=== PATIENT | female | born 1940 | race Caucasian/White ===

== ENCOUNTER 2018-11-19 18:32 | Inpatient (IN) | payer OTHER ==
[~2018-11-19] VITALS: Ht 160 cm; Wt 39.7 kg
[~2018-11-19 18:32] MED LIST: ALBU90OI6 INH; ALLO100; AMLO10 PO; ASPI81EC; ASPI81EC PO; ATEN50 PO; ATOR10; AZIT500 PO; Aspirin EC81 MG PO; BUPR150T2; CELE200; CLOP75; FURO80; GLIM2; Geritol Comple1 EACH PO; HYDGUAL120 PO; LEVFLO500; LEVFLO500 PO; LEVSOD200; LISI10; LISI20 PO; LOVA20 PO; Lovastatin20 MG PO; Metformin HCl500 MG PO; NAPR550 PO; OLME20; OMEP20ER; POTCHL20ER; PRED20 PO; RXHYDACE; SUCR1; TAMO10 PO; WARF2 PO; WARF2.5 PO
[2018-11-19 19:07] LABS: BASOPHILS ABSOLUTE AUTO 0.04 K/mm3 (0.00-0.23); BASOPHILS PERCENT AUTO 0 % (0-2); EOSINOPHILS ABSOLUTE AUTO 0.03 K/mm3 (0.00-0.68); EOSINOPHILS PERCENT AUTO 0 % (0-6); Hematocrit 33.8 % (33.0-51.0); Hemoglobin 10.5 g/dL (11.5-16.0); IMMATURE GRAN ABSOLUTE AUTO 0.01 K/mm3 (0.00-0.10); IMMATURE GRAN PERCENT AUTO 0 % (0-1); LYMPHOCYTES ABSOLUTE AUTO 0.61 K/mm3 (0.84-5.20); LYMPHOCYTES PERCENT AUTO 6 % (21-46); MONOCYTES ABSOLUTE AUTO 0.63 K/mm3 (0.16-1.47); MONOCYTES PERCENT AUTO 7 % (4-13); Mean Corpuscular HGB 28.9 pg (26.0-34.0); Mean Corpuscular HGB Conc 31.1 g/dL (31.5-36.5); Mean Corpuscular Volume 93 fL (80-100); Mean Platelet Volume 9.2 fL (9.1-12.4); NEUTROPHILS ABSOLUTE AUTO 8.39 K/mm3 (1.96-9.15); NEUTROPHILS PERCENT AUTO 86 % (41-73); Platelet Count 289 K/mm3 (150-400); RDW Coefficient Variation 14.8 % (11.7-14.2); RDW Standard Deviation 50.7 fL (35.1-46.3); Red Blood Cell Count 3.63 M/mm3 (3.80-5.20); White Blood Cell Count 9.71 K/mm3 (4.00-11.30)
[2018-11-19] MEDS ORDERED: METO50ER PO (19:16)
[2018-11-19 19:34] LABS: Alanine Aminotransfer (ALT/SGP 25 U/L (12-78); Albumin, Blood 2.9 g/dL (3.4-5.0); Albumin/Globulin Ratio 0.7 (0.8-1.8); Alk Phos 81 U/L (50-136); Anion Gap 6 mmol/L (6-16); Aspartate Aminotrans (AST/SGOT 38 U/L (12-37); Bilirubin, Total 0.3 mg/dL (0.1-1.0); Blood Urea Nitrogen 10 mg/dL (8-24); Bun/Creatinine Ratio 27.5 (12.0-20.0); CO2, Blood 28 mmol/L (21-32); Calcium, Blood 8.5 mg/dL (8.5-10.1); Chloride, Blood 102 mmol/L (98-108); Creatinine, Blood 0.36 mg/dL (0.40-1.00); Globulin, Blood 3.9 g/dL (2.2-4.0); Glomerular Filtration Rate >60 (60-); Glucose, Blood 104 mg/dL (70-99); Potassium, Blood 4.1 mmol/L (3.5-5.5); Sodium, Blood 136 mmol/L (136-145); Total Protein, Blood 6.8 g/dL (6.4-8.2)
[2018-11-19] MEDS ORDERED: ZESTRIL40 MG PO (21:38)
[2018-11-19] MEDS ORDERED: ALBU3IS INH (21:41)
[2018-11-19 21:47] LABS: International Normalized Ratio 1.11; Prothrombin Time Results 11.7 Sec (9.7-11.5)
--- NOTE | 2018-11-19 23:00 | NUR ---
ASSUMED CARE REPORT TAKEN FROM ED RN ZITA. PT ARRIVED TO UNIT AND WAS MOVED FROM STRETCHE TO BED D/T FOOT PAIN. BLE APPEAR PALE AND SUCKY IN COLOR WITH SOME DARKENING OF SKIN AROUND ANKELS AND SHINS. PT REPORTS N/T TO BLE AND PAIN TO TOUCH ON BILAT FEET. PULSES CAN BE FELT BUT ARE THREADY, AND L FOOT PULSE IS WEAKER. RESP EVEN UNLBAORED ON 4L NC, PT REPORTS THIS IS BASELINE. SATS >92%. PT REQUESTING TO SMOKE. EDUCATED THAT IT WOULD BE BEST TO WAIT UNTIL PT IS SEEN BY DR SHEA IN AM BEFORE GOING OUT TO SMOKE. PT IS INDEPENENT IN ROOM TO RR. CALL LIGHT IN REACH.
--- NOTE | 2018-11-20 05:46 | NUR ---
SHIFT SUMMARY PT SLEEPING IN ROOM COMFORTABLY. NO ACTUE CHANGES SINCE ARRIVAL. PT IS INDEPENDENT IN ROOM. CALLS APPROPRIATELY. RESP EVEN UNLABORED ON 4L O2 VIA NC. SATS >92%. CALL LIGHT IN REACH
--- NOTE | 2018-11-20 19:36 | NUR ---
SHIFT SUMMARY PT ALERT AND ORIENTED. VS STABLE. DR SHEA IN TO SEE PT THIS EVENING. PLANS TO TAKE PT TO CHEMICAL DETECTION EXPERT Friday. PT EDUCATED ABOUT SMOKING CESSATION. HEPARIN GTT INFUSING PER ORDERS. NO OTHER CHANGES SINCE INITIAL ASSESSMENT. WILL CONTINUE TO MONITOR. REPORT GIVEN TO MONICA RODRÍGUEZ RN.
--- NOTE | 2018-11-20 21:29 | NUR ---
PCU NIGHTSHIFT ASSUMED CARE OF PT APPROX. 1900. PT A&O X4 AT THIS TIME. ASSESMENT COMPLETED AND VITAL SIGNS STABLE. PT SKIN DRY, FRAGILE. EXTREMITIES COOL, PALE AND PURPLE COLORED. BLE POOR CIRCULATION, WITH FAINT PEDAL PULSE. HEPARIN DRIP CURRENLTY RUNNING AT THIS TIME. VARIFIED RATES AND CHANGES WITH SECOND RN. FAMILY AT BEDSIDE SHORTLY AFTER SHIFT CHANGE. RECIEVED REPORT AND BEGIN TO VISIT ALL PT'S. WHILE IN TO SEE OTHER PATIENTS FAMILY REQUESTED TO SEE PT'S RN. WENT TO ROOM SOON POSSIBLE TO SEE FAMILY. FAMILY NOTIFED ME THAT THEY HAD GIVEN PT HER EVENING MEDICATIONS FROM HER HOME MEDICATION CONTAINER. WHEN INQUIRING ABOUT WHAT MEDICAITONS WERE GIVEN THEY REPORTED THEY WERE UNCERTAIN OF NAMES. SPOKE WITH PT TO TRY AND GET NAME OF MEDICATIONS THAT SHE TAKES IN THE EVENING TO VARIFY THIS WITH SCHEDULED HOSPITAL MEDICATIONS. ALL SCHEDULED HOSPITAL MEDICAITONS WERE HELD. PT HOME MEDICAITONS WERE TAKEN AND SAFELY LOCKED UP. NOTIFIED FAMILY AND PATIENT NOT TO GIVE/TAKE ANY HOME MEDICATIONS. REASSURED THAT ALL NEEDED MEDICATIONS WOULD BE GIVEN BY HOSPITAL STAFF. BED IN LOW POSITION, BED ALARM ON, CALL LIGHT IN REACH AND PT DENIES ANY NEEDS AT THIS TIME. WILL CONTINUE TO MONITOR.
--- NOTE | 2018-11-21 05:43 | NUR ---
SHIFT SUMMARY PT PLEASANT, COOPERATIVE AND USES CALL LIGHT APPROPRIATELY. PT REMAINE IN BED FOR DURATION OF SHIFT. PT MOVED SELF AROUND IN BED AT NEEDED. ASSESSMENT FINDINGS REMAIN UNCHANGED. VITAL SIGNS REMAIN STABLE. HEPARIN DRIP CONTINUES TO RUN. BED IN LOW POSITION, BED ALARM ON, CALL LIGHT IN REACH AND PT DENIES ANY NEEDS AT THIS TIME. WILL CONTINUE TO MONITOR UNTIL HANDOFF TO DAYSHIFT RN.
--- NOTE | 2018-11-21 10:50 | NUR ---
AM NOTE. ASSUMED CARE OF PT APROX 0700, PT IS A&O WITH CONFUSION AT TIMES. PT IS A SBA TO THE BATHROOM/BSC. PT WAS ADMITTED DUE TO PAD W/POSSIBLE OCCLUSION OF PREVIOUSLY PLACED STENT. PT IS SCHEDULED FOR PROCEDURE ON THURSDAY 11/23. TELE INTACT, NSR IN THE 90'S PER CTRS. PT'S BP 108/64. NO EDEMA NOTED ON ASSESSMENT. PT L/S ARE COARSE T/O AND DIM IN THE BASES, PT IS 1PPD SMOKER. BT PRESENT AND HYPERACTIVE, ABD IS SOFT AND NONTENDER TO PALP. PT'S SKIN IS VERY DRY, FLAKEY AND FRAGILE. PT'S BLLE ARE DUSKY/PURPLE AND COOL WITH VERY FAINT PEDAL PULSES. PT'S BLUE ARE DUSKY AND COOL WELL. CALL LIGHT IN REACH, BED IS LOCKED AND LOW WILL CONTINUE TO MONITOR.
--- NOTE | 2018-11-21 18:00 | NUR ---
SHIFT SUMMARY. NO ACUTE CHANGES NOTED THIS SHIFT. PT HAS BEEN SBA TO THE BATHROOM. PT'S VS HAVE BEEN STABLE. PT DENIES ANY CHEST PAIN/PRESSURE, N/V OR SOB. BEDALARM IS ON DUE TO PT'S OCC CONFUSION. HEPARIN GTT INFUSING AT 19U/KG/HR AND 12.9MLS/HR. CALL LIGHT IN REACH, BED IS LOCKED AND LOW. WILL CONTINUE TO MONITOR UNTIL REPORT IS GIVEN TO ONCOMING RN.
[2018-11-21 20:19] LABS: Platelet Count 266 K/mm3 (150-400)
--- NOTE | 2018-11-22 00:19 | NUR ---
PCU NIGHTSHIFT ASSUMED CARE OF PT APPROX. 1900. PT A&OX4. ASSESSMENT COMPLETED. VITAL SIGNS STABLE. PT REPORTS LEFT LEG PAIN. BLE COOL, DUSKY/PURPLE COLOR. LEFT LEG IS SLIGHTLY COOLER AND MORE PURPLE THAN RIGHT. PULSE FAINT BILATERALLY. BUE COOL WELL. HEPARIN DRIP RUNNING AT THIS TIME. VARIFED WITH SECOND RN ALONG WITH ANY CHANGES MADE. BED IN LOW POSITION, BED ALARM ON, CALL LIGHT IN REACH AND PT DENIES ANY NEEDS AT THIS TIME. WILL CONTINUE TO MONITOR.
--- NOTE | 2018-11-22 05:12 | NUR ---
SHIFT SUMMARY PT PLEASANT, COOEPRATIVE AND USES CALL LIGHT APPROPRIATELY. PT WAS ABLE TO REST FOR MOST OF SHIFT.VITAL SIGNS REMAIN STABLE. PT REMAINS A&O X4 AND ASSESSMENT FINDINGS REMAIN UNCHANGED FROM AM. AFTER PRN PAIN MEDICAITONS GIVEN THIS MRRUY PT REPORTS LEFT LEG PAIN IMPROVED AND DID NOT INCREASE AFTER THIS. PT ABLE TO AMUBLATE TO BEDSIDE COMMODE NEEDED. HEPARIN DRIP STILL RUNNING. CHANGES VARIFIED WITH SECOND RN THROUGHOUT SHIFT. BED IN LOW POSITION, BED ALARM ON, CALL LIGHT IN REACH AND PT DENIES ANY NEEDS AT THIS TIME. WILL CONTINUE TO MONITOR UNTIL HANDOFF TO DAYSHIFT RN.
[2018-11-22 15:24] LABS: Anion Gap 6 mmol/L (6-16); Blood Urea Nitrogen 12 mg/dL (8-24); Bun/Creatinine Ratio 39.9 (12.0-20.0); CO2, Blood 30 mmol/L (21-32); Calcium, Blood 8.1 mg/dL (8.5-10.1); Chloride, Blood 98 mmol/L (98-108); Glomerular Filtration Rate >60 (60-); Glucose, Blood 185 mg/dL (70-99); Sodium, Blood 134 mmol/L (136-145)
[2018-11-22 15:25] LABS: BASOPHILS ABSOLUTE AUTO 0.03 K/mm3 (0.00-0.23); BASOPHILS PERCENT AUTO 0 % (0-2); EOSINOPHILS ABSOLUTE AUTO 0.04 K/mm3 (0.00-0.68); EOSINOPHILS PERCENT AUTO 1 % (0-6); Hematocrit 30.4 % (33.0-51.0); Hemoglobin 9.4 g/dL (11.5-16.0); IMMATURE GRAN ABSOLUTE AUTO 0.02 K/mm3 (0.00-0.10); IMMATURE GRAN PERCENT AUTO 0 % (0-1); LYMPHOCYTES ABSOLUTE AUTO 0.73 K/mm3 (0.84-5.20); LYMPHOCYTES PERCENT AUTO 9 % (21-46); MONOCYTES ABSOLUTE AUTO 0.54 K/mm3 (0.16-1.47); MONOCYTES PERCENT AUTO 7 % (4-13); Mean Corpuscular HGB 28.6 pg (26.0-34.0); Mean Corpuscular HGB Conc 30.9 g/dL (31.5-36.5); Mean Corpuscular Volume 92 fL (80-100); Mean Platelet Volume 9.5 fL (9.1-12.4); NEUTROPHILS ABSOLUTE AUTO 6.46 K/mm3 (1.96-9.15); NEUTROPHILS PERCENT AUTO 83 % (41-73); Platelet Count 274 K/mm3 (150-400); RDW Coefficient Variation 14.6 % (11.7-14.2); RDW Standard Deviation 49.7 fL (35.1-46.3); Red Blood Cell Count 3.29 M/mm3 (3.80-5.20); White Blood Cell Count 7.82 K/mm3 (4.00-11.30)
--- NOTE | 2018-11-22 17:51 | NUR ---
SHIFT SUMMARY Assumed care of pt at 0700. Report received from Loreto ASHER. Pt on 2 LPM NC. States her home use of O2 is 2.5-3 LPM. Pt OOB several times this shift with standby assist. Pt had family visit for about one hour today. Update provided to family with verbal consent from patient. Bed maintained in lowest position. Call light in reach. Pt denies need at this time.
--- NOTE | 2018-11-22 23:48 | NUR ---
PCU NIGHTSHIFT ASSUMED CARE OF PT APPROX. 1900. PT A&o X4, ASSESSMENT COMPLETED. VITAL SIGNS STABLE. PT HAS OXYGEN VIA NASAL CANULA AT 3L/MIN. BLE PULSES FAINT, COOL, PAINFUL AND PURPLE. LEFT LEG SLIGHTLY WORSE THAN RIGHT. HEPARIN DRIP RUNNING. VARIFIED WITH SECOND RN. BED IN LOW POSTION, BED ALARM ON, CALL LIGHT IN REACH AND PT DENIES ANY NEEDS AT THIS TIME. WILL CONTINUE TO MONITOR.
[2018-11-23 04:10] LABS: Mean Platelet Volume 9.3 fL (9.1-12.4); Platelet Count 265 K/mm3 (150-400)
--- NOTE | 2018-11-23 05:01 | NUR ---
SHIFT SUMMARY PT PLEASANT, COOPERATIVE AND USES CALL LIGHT APPROPRATELY. PT REMAINS A&O X4. VITAL SIGNS STABLE. PT WAS ABLE TO REST FOR MOST OF SHIFT. HEPARIN DRIP CONTINUES TO RUN.ALL CHANGES VARIFIED WITH SECOND RN. PT ABLE TO AMBULATE TO BEDSIDE COMMODE NEEDED T/O SHIFT. PT HAVE BEEN NPO SINCE MIDNIGHT FOR PROCEDURE ON 11/23/18. BED IN LOW POSITION, CALL LIGHT IN REACH AND PT DENIES ANY NEEDS AT THIS TIME. WILL CONTINUE TO MONITOR UNTIL HANDOFF TO DAYSHIFT RN.
--- NOTE | 2018-11-23 18:26 | NUR ---
ARRIVED TO ICU 14 VIA BED FROM HEART CENTER. PT. LETHARGIC PAST VERSED AND FENTANYL. VSS. MONITOR SHOWS SINUS RHYTHM. LUNGS CLEAR, SA02 100% ON 2L/NC. PT. HAS SHEATH X3- RT. GROIN SHEATH INFUSING HEPARIN AT 300 UNITS/HR= 6ML/HR (8 U /KG/HR). NS AT 25 ML/HR WITH TPA AT 0.5 MG/HR = 50 ML/HR X2 INFUSING IN EACH OF THE LT. BRACHIAL ARTERY AND RT. POST TIB ARTERY. INSERTIONS SITES WITHOUT BLEEDING OR HEMATOMAS.
[2018-11-23 18:45] LABS: Hematocrit 32.3 % (33.0-51.0); Hemoglobin 10.3 g/dL (11.5-16.0)
--- NOTE | 2018-11-23 19:30 | NUR ---
ASSUSMED CARE ASSUMED CARE OF PT. PT SLEEPING, AWAKESN BRIEFLY TO VERBAL STIMULI. C/O PAIN TO FEET WHEN TOUCHED. BILAT FEET COOL TO TOUCH. LEFT FOOT WITH CATH TO POSTERIOR. TPA AT 25 ML/HR, 0.5 MG/HR WITH NS AT 25 ML/HR. SITE CLEAR. RIGHT GROIN WITH HEPARING AT 6 ML/HR, SITE CLEAR. LEFT ARM WITH SHEATH TO BRACHIAL, TPA AT 25 ML/HR, 0.5MG/HR AND NS AT 25 ML/HR. SITE WITH SLIGHT DRAINAGE NOTED. ARM BOARD ON.
--- NOTE | 2018-11-23 19:40 | NUR ---
TRANSFER TO [facility] Assumed care of pt at 0700. Report recieved from Loreto ASHER. 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 Pt on 2 LPM NC for entire time in PCU. Medical floor status without telemetry. Pt departed from PCU to heart center between 1230 and 1300. "Ning" waited in pt's room, PCU 13. Around 1600, "Ning" asked for update on pt. This RN was told that pt was in procedure. This RN walked "Ning" to heart center waiting room and notified staff that pt's family was waiting. Ning's , Nancy, and Jenn also taken to [facility] waiting room by this RN. This RN recieved notification that pt would be transferring to ICU. Pt's belongings and meds tranferred from PCU 13 to ICU 14.
--- NOTE | 2018-11-23 20:15 | NUR ---
ASSESSMENT PT SLEEPING, AWAKENS TO VERBAL STIMULI, BUT GOES BACK TO SLEEP QUICKLY. LUNGS CLEAR BUT DECREASED IN THE BASES ON 2 LITERS VIA NC. RESP EVEN AND NONLABORED. HEART RATE IRREGULAR. BP STABLE. BT+ ABD SOFT AND NONTENDER. PT LYING SUPINE. [place] CATH PATENT DRAINING YELLOW URINE. LEFT ARM WITH SHEATH TO BRACHIAL, ARM BOARD ON. SLIGHT BLOODY DRAINAGE NOTED. TPA AND NS INFUSING WITHOUT DIFFICULTY. NO SWELLING NOTED. RIGHT GROIN WITH SHEATH INTACT HEPARIN INFUSING AT 6 ML/HR. SHEATH TO RIGHT ANKLE SITE CLEAR, TPA AT 25 ML/HR 0.5 MG/HR AND NS AT 25 ML/HR. DOPPLER PULSE TO LEFT DP ONLY. FEET COOL TO TOUCH. PT LOG ROLLED TO LEFT WITHOUT FLEXING GROIN.
--- NOTE | 2018-11-23 21:10 | NUR ---
HS MEDS PT SLEEPING, AWAKENS TO VERBAL STIMULI. HS MEDS GIVEN WITH SIPS WATER. NO CHANGE TO SHEATH SITES. FEET REMAIN COOL.
[2018-11-23 23:45] LABS: Hemoglobin 9.3 g/dL (11.5-16.0)
--- NOTE | 2018-11-24 00:11 | NUR ---
REASSESSMENT PT AWAKE, DENIES PAIN. PT WATCHING TV, ASSISTED WITH TV REMOTE. TPA TO LEFT BRACHAIL AND RIGHT ANKLE DECREASED TO 12.5 ML/HR 0.25 MG.HR. DOPPLER PULSES TO LEFT POST TIB ONLY. FEET WARMER. RIGHT GROIN STABLE WITH HEPARIN AT 6 ML/HR. EXPLAINED TO PT WHY SHE IS UNABLE TO SIT UP, SHE EXPRESSED UNDERSTANDING.
--- NOTE | 2018-11-24 03:59 | NUR ---
REASSESSMENT PT SLEEPING, AWAKENS EASILY. PT DENIES PAIN. REPOSITIONED TO RIGHT WITH LOG ROLLING. RIGHT GROIN STABLE WITH HEPARIN INFUSING. RIGHT FOOT COOL TO TOUCH. TPA AND NS INFUSING SITE CLEAR. LEFT BRACHIAL WITH TPA AND NS INFUSING, SITE CLEAR.
[2018-11-24 05:38] LABS: Hematocrit 27.6 % (33.0-51.0); Hemoglobin 8.6 g/dL (11.5-16.0)
--- NOTE | 2018-11-24 05:50 | NUR ---
SHIFT SUMMARY PT RESTING QUIETLY. AWAKENS EASILY. USING CALL LIGHT. DENIES PAIN EXCEPT WHEN FEET ARE TOUCHED. LOG ROLLED SIDE TO SIDE DURING THE NIGHT. RIGHT GROIN STABLE WITH HEPARIN INFUSING AT 6 ML/HR. RIGHT ANKLE SHEATH STABLE NOT HEMATOMA NOTED, SCANT BLEEDING AT SIGHT NOTED DURING THE NIGHT. NS AT 25 ML/HR WITH TPA AT 12.5 ML/HR 0.25 MG/HR INFUSING VIA SHEATH. LEFT BRACHAIL SHEATH STABLE WITH SLIGHT BLOODY DRAINAGE NOTED. ARM BOARD ON. NS AT 25 ML/HR WITH TPA AT 12.5 ML/HR 0.25 MG/HR VIA SHEATH. PT TO RETURN TO [facility] THIS AM. REPORT TO ON COMING NURSE
--- NOTE | 2018-11-24 06:35 | NUR ---
TRANSFER OF CARE NOTE DELAYED BY APPROX 12H.
--- NOTE | 2018-11-24 07:55 | NUR ---
ASSUMED CARE PT ALERT AND ORIENTED THIS AM. PLANS TO RETURN TO [employer] [employer] AROUND 0930. PT. CONTINUES WITH ARM BOARD TO LEFT ARM AND SHEATH IN PLACE; ALONG WITH SHEATH TO RIGHT GROIN, AND RIGHT ANKLE. HEPARIN INFUSING TO RIGHT GROIN SHEATH AT 6ML/HR; TPN INFUSING TO RIGHT ANKLE AT 12.5ML/HR; TPN INFUSING TO LEFT BRACHIAL AT 12.5ML/HR. PT. TO REMAIN NPO FOR PROCEDURE. VSS THIS AM. CALL LIGHT IN REACH.
--- NOTE | 2018-11-24 08:53 | NUR ---
PT TO PROJECT ECONOMIST
[2018-11-24 11:28] LABS: Alanine Aminotransfer (ALT/SGP 13 U/L (12-78); Albumin, Blood 1.5 g/dL (3.4-5.0); Albumin/Globulin Ratio 0.5 (0.8-1.8); Alk Phos 42 U/L (50-136); Anion Gap 12 mmol/L (6-16); Aspartate Aminotrans (AST/SGOT 35 U/L (12-37); Bilirubin, Total 0.2 mg/dL (0.1-1.0); Blood Urea Nitrogen 9 mg/dL (8-24); Bun/Creatinine Ratio 45.9 (12.0-20.0); CO2, Blood 20 mmol/L (21-32); Chloride, Blood 93 mmol/L (98-108); Globulin, Blood 2.8 g/dL (2.2-4.0); Glomerular Filtration Rate >60 (60-); Glucose, Blood 101 mg/dL (70-99); Potassium, Blood 3.1 mmol/L (3.5-5.5); Sodium, Blood 125 mmol/L (136-145); Total Protein, Blood 4.3 g/dL (6.4-8.2)
[2018-11-24 11:43] LABS: Calcium, Blood 5.9 mg/dL (8.5-10.1)
--- NOTE | 2018-11-24 11:45 | NUR ---
PT ARRIVAL: PT ARRIVED VIA BED W/ [facility] STAFF. REPORT GIVEN ON PROCEDURE. SHEATH SITES VISUALIZED, AND CHECKED ALL CRITICAL GTTS WITH STAFF. DECREASED 02 SATS @ 88%. PT PLACED ON 5L 02 PER N/C. CANNULA HAD TO BE MOVED TO MOUTH PT IS A MOUTH BREATHER. SATS QUICKLY INCREASED TO 99-100%. 02 DECREASED TO 3L 02 AT THIS TIME. ALL SHEATH SITES ARE STABLE, NO BLEEDING/OOZING. SMALL SOFT, HEMATOMA BELOW INSERTION SITE OF RT FEMORAL SHEATH. -RT FEMORAL SHEATH WITH TPN @ 0.25MG/HR INFUSING THROUGH SHEATH SITE -LT BRACHIAL SHEATH WITH TPN @ 0.25MG/HR INFUSING THROUGH SHEATH SITE. -RT PEDAL SHEATH WITH HEPARIN GTT @ 6ML/HR (300UNITS/HR) INFUSING THROUGH SHEATH SITE. PT IS DROWSY BUT SLIGHTLY AROUSABLE. MOVES ALL EXTREMITIES.
--- NOTE | 2018-11-24 12:23 | NUR ---
REPORT TO GRETCHEN ASHER; TO ASSUME CARE UPON ARRIVAL FROM CHANGE OF ADDRESS CLERK
--- NOTE | 2018-11-24 12:30 | NUR ---
REPORTED OFF: REPORTED OFF TO LB MARIO WHOM IS ASSUMING CARE OF THIS PT. BEDSIDE REPORT COMPLETED. CHECKED SHEATH SITES AND CRITICAL GTT'S TOGETHER. INTRODUCED TO FAMILY. NO CHANGE IN PT'S STATUS. VITAL SIGNS STABLE. CALCIUM CHLORIDE IVPB STARTED AT THIS TIME. REPORTED OFF LOW POTASSIUM LEVEL TO SHELBI TO F/U ON REPLACEMENT. VERIFIED GTT RATES WITH PHARMACY.
--- NOTE | 2018-11-24 13:34 | NUR ---
ASSUMED CARE AT 1230 REPORT FROM LB GODINEZ. TPA AT 0.25MG/HR TO RIGHT GROIN AND LEFT BRACHIAL. HEPARIN AT 300 UNITS/HOUR TO RIGHT DORSAL.
[2018-11-24 13:57] LABS: Hematocrit 23.9 % (33.0-51.0); Hemoglobin 7.2 g/dL (11.5-16.0)
--- NOTE | 2018-11-24 14:26 | NUR ---
ATTEMPTED TO CALL DR CHAWLA FOR F/U POTASSIUM/SODIUM/ H+H LEVEL. PHONE BUSY X3 TIMES. CALLED TO ASSIST SHELBI WITH CARE.
--- NOTE | 2018-11-24 14:54 | NUR ---
CALLED DR. CHAWLA ABOUT MOST RECENT LABS. SEE ORDERS.
--- NOTE | 2018-11-24 16:02 | NUR ---
EXTREMELY RESTLESS. DOES FIGHT THE RESTRAINTS. DR MILLIGAN IN TO SEE PATIENT AGAIN.
[2018-11-24 17:50] LABS: Hematocrit 24.2 % (33.0-51.0); Hemoglobin 7.6 g/dL (11.5-16.0)
--- NOTE | 2018-11-24 20:13 | NUR ---
ASSUMED PATIENTS CARE THIS AFTERNOON. ALL DRIPS REMAIN THE SAME.CALCIUM GLUCONATE RIDER GIVEN, FIRST OF 2 UNITS OF PACKED CELLS STARTED INFUSING. PAT AWAKED AND WAS TESTY AT FAMILY FOR DISTURBING HER. ATE 2 BITES OF APPLESAUCE WITH ORAL POTASSIUN DOSE. SMALL HEMATOMA BELOW RIGHT GROIN SITE MAKED WITH PEN AND HAS NOT INCREASED.
--- NOTE | 2018-11-24 21:56 | NUR ---
START OF SHIFT: REPORT FROM LOKI ASHER. tPA GTTS VERIFIED AND ORDERS REVIEWED. PT REMAINS DROWSY FROM DAY REPORT BUT PT AWAKENS EASILY. MOLINA. PT ORIENTED TO SELF BUT THOUGHT SHE WAS AT HOME. PT MORE ORIENTED THE LONGER AWAKE. PT LS CLEAR SATS 97-98% ON 2L O2. BP STABLE. ACCESS SITES ASSESSED: RIGHT GROIN WITH OUTLINE AROUND EXISTING BRUISE WITH NO FURTHER BRUISING NOTED; RIGHT FOOT TIBIAL ACCESS WITH SOME PREVIOUS LEAKING NOTED ON CHUCKS PAD BUT IS SMALL AMOUNT AND NO VISIBLE LEAKING AROUNG ACCESS CATHETER SITE; LEFT ARM WITH ARM BOARD WITH PREVIOUS LEAKAGE NOTED TO GHOSH PAD BUT APPEARS NO ACTIVE LEAKING AT THAT TIME NOR CURRENTLY. BOTH tPA gtts VERIFIED AND RUNNING AT THE ORDERED RATE OF 0.25 mg/hr AND HEPARIN TO RIGHT TIBIAL SITE 8.07 u/kg/hr. PEDAL PULSE TO RIGHT FOOT PER DOPPLAR ABSENT NOT ABLE TO OBTAIN TIBIAL PULSE PER ABOVE. RIGHT PEDAL AND TIBIAL PULSES DETECTED PER DOPPLAR. PT SWALLOWED NOC MEDICATIONS WITH APPLE SAUCE THEN ALLOWED DENTURES TO BE TAKEN OUT AND CLEANED. PT STATED SLEEPS WITH DENTURES IN. PT FALLS ASLEEP WHEN NO-ONE AT BEDSIDE. WILL CONTINUE TO MONITOR.
[2018-11-24 23:28] LABS: Hematocrit 28.8 % (33.0-51.0); Hemoglobin 9.2 g/dL (11.5-16.0)
--- NOTE | 2018-11-25 02:44 | NUR ---
RBC SECOND UNIT DONE INFUSING. PT TOLERATED WELL. PT AWAKENS TO RN AT BEDSIDE. BOTH FEET CONTINUE TO BE VERY SENSITIVE TO TOUCH BUT PT TOLERATED HEELS BEING SLIGHTLY ELEVATED ACCESS SITES ALL REMAIN UNCHANGED FROM SHIFT CHANGE. VSS. PT WANTING TO REMAIN IN SAME SUPINE POSITIONED COCCYX SUPPORTED WITH PILLOWS TO RELIEVE COCCYX DISCOMFORT. WILL CONTINUE TO MONITOR.
--- NOTE | 2018-11-25 04:54 | NUR ---
PT CONTINUES TO AWAKEN EASILY WHEN RN AT BEDSIDE. PT C/O DISCOMFORT TO LEGS, FEET, AND COCCYX T/O NOC BUT WAS EASILY COMFORTED WITH SLIGHT REPOSITIONING USING PILLOWS FOR SUPPORT. CATHETER ACCESS SITES REMAIN UNCHANGED FROM PREVIOUS ASSESSMENTS AND CONTINUE TO INFUSE tPA AT 0.25 mg/hr AT THE LEFT BRACHIAL SITE AND RIGHT GROIN SITE. HEPARIN CONTINUES AT 8.07 u/kg/hr. FIBRINOGEN 374 AT 2330 NOTED. PT CURRENTLY LISTENING TO MUSIC. CALL LIGHT WITHIN REACH.
[2018-11-25 05:26] LABS: Hematocrit 32.9 % (33.0-51.0); Hemoglobin 10.9 g/dL (11.5-16.0)
[2018-11-25 05:51] LABS: Blood Urea Nitrogen 14 mg/dL (8-24); Bun/Creatinine Ratio 48.4 (12.0-20.0); CO2, Blood 23 mmol/L (21-32); Chloride, Blood 107 mmol/L (98-108); Creatinine, Blood 0.29 mg/dL (0.40-1.00); Glomerular Filtration Rate >60 (60-); Glucose, Blood 120 mg/dL (70-99); Potassium, Blood 3.9 mmol/L (3.5-5.5)
[2018-11-25 05:52] LABS: Anion Gap 9 mmol/L (6-16); Sodium, Blood 139 mmol/L (136-145)
[2018-11-25 05:53] LABS: Calcium, Blood 8.5 mg/dL (8.5-10.1)
--- NOTE | 2018-11-25 07:22 | NUR ---
BEDSIDE REPORT TO RICO ASHER. CATHETER ACCESS SITES ASSESSED AND GTTS COVERED. PT INCREASINGLY AGITATED. PT'S NIECE INNA AT BEDSIDE. VSS.
--- NOTE | 2018-11-25 07:30 | NUR ---
ASSUMED CARE OF PATIENT; SEE ASSESSMENT CHARTING FOR DETAILS. PATIENT AWAKE AND ALERT; SLIGHT NIKOLAI; LOUDER VOICE REQUIRED. LUNGS DIMINISHED IN BASES AND SOME UPPER AIRWAY RHONCHI; OXYGEN AT 2L/MIN VIA NC; BIOX STAYING > 95%. MONITOR NSR TO ST; HIGH 120'S WHEN ROUSED/ACTIVITY; LOW GRADE FEVER OF 99.3. [place] TO GRAVITY AND DRAINING FAIR AMOUNTS OF PALE YELLOW URINE. TPA AND HEPARIN INFUSING VIA BILAT GROIN SITES AND SHANIKA; SEE SPECIFICS IN PROCEDURAL REPORT. TO ATTEMPT TO OPEN UP VESSELS TO LE'S WITH AID OF ANIEMBOLICS WELL PROCEDURAL. NIECE ARRIVED; SUPPORTIVE OF PATIENT; INFORMED RN THAT ONLY 2 PERSONS CAN VISIT OR RECEIVE INFORMATION, HERSELF (NIECE) AND HER DAUGHTER, CODE WORD OF 'JOKER' TO BE PROVIDED.
--- NOTE | 2018-11-25 08:45 | NUR ---
T/C TO HEART CENTER TO GET TIME LINE FOR PROCEDURE; INFORMED 2 OUTPATIENT CASES WERE AHEAD OF PATIENT AND PATIENT IS NEXT ON LIST. RN INQUIRED RE: AM MEDS.; INSTRUCTED TO HOLD MEDS. (PER LB REARDON).
--- NOTE | 2018-11-25 09:05 | NUR ---
STAFF FROM [facility] HERE TO READY PATIENT FOR ONGOING PROCEDURE; TO HEART CENTER, VIA BED AND WITH OXYGEN, AT 0910.
--- NOTE | 2018-11-25 10:15 | NUR ---
DR. SHEA (INTERVENTIONALIST) CAME BY TO SPEAK TO RN RE: POC WITH PATIENT. STATES TPA UNBLOCKED CLOTS AND FLOW T/O. WANTS TO MAKE SURE PATIENT RECEIVES HEPARIN IV CONT. INFUSION/FLUSH PER ORDER; H TO MANAGE. STATES HE WILL BE HAVING LONG DISCUSSION, WITH PATIENT, RE: NEED TO STOP SMOKING. HEART CENTER STAFF TO HOLD PRESSURE TO SITES WHERE SHEATHS HAVE BEEN PULLED. MOST CONCERNED THAT L HUMERUS SITE WILL BE THE ONE MOST LIKELY TO REBLEED; RATHER THAN BILAT. GROIN SITES. HEPARINIZATION IS CRITICAL TO KEEP VESSELS FROM RECLOTTING; HEPARIN TO BRIDGE TO PO MEDS.
--- NOTE | 2018-11-25 11:00 | NUR ---
ARRIVED BACK TO ICU 14, VIA BED. NS INFUSING BUT NO OTHER MEDS AT THIS TIME. 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 HERE AND STAT LABS DRAWN PER ORDER. RN THEN RESUMED HEPARIN GTT AT PREVIOUS RATE OF 6ML/HR. L HUMERUS SHEATH PULLED IN HEART CENTER; DRESSING D/I; R GROIN SHEATH ALSO REMOVED; REMAINS WITH SWELLING/HEMATOMA BUT DOES NOT APPEAR LARGER THAT PRIOR TO PROCEDURE. R MEDIAL/ANKLE SHEATH ALSO OUT; DRESSING D/I. DOPPLER PULSES PRESENT TO BILAT. LE'S; PALPABLE PULSES TO UPPER EXTREM. MONITOR SINUS TACH; RATE 100'S TO 120'S; TEMP. REMAINS 99.3.
[2018-11-25 11:30] LABS: Hematocrit 30.7 % (33.0-51.0); Hemoglobin 10.2 g/dL (11.5-16.0)
[2018-11-25 11:40] LABS: Mean Platelet Volume 9.9 fL (9.1-12.4); Platelet Count 151 K/mm3 (150-400)
[2018-11-25 11:53] LABS: International Normalized Ratio 1.17; Prothrombin Time Results 12.2 Sec (9.7-11.5)
--- NOTE | 2018-11-25 13:00 | NUR ---
PATIENTS' DAUGHTER, ABISAI, AND FUTURE SON-N-LAW VISITING; VERY SUPPORTIVE. PATIENT RECEIVING PROTEIN MILKSHAKES (IE, ENSURE, GLUCERNA); NO BIG APPETITE BUT ENJOYS THE SHAKES; HOB RAISED TO ABOUT 30 DEGREES.; RESTLESS AT TIMES AND PLAYS WITH MULTIPLE CORDS (MONITOR, BIOX. ETC), REINFORCED NEED TO LEAVE CORDS ALONE; GAVE PATIENT CALL LIGHT AND REVIEWED USE OF CALL BUTTON AND TV CONTROLS; FORGETFUL.
[2018-11-25 17:40] LABS: Hematocrit 30.2 % (33.0-51.0)
--- NOTE | 2018-11-25 18:00 | NUR ---
SUMMARY: R GROIN, R MEDIAL ANKLE AND L HUMERUS SITES UNCHANGED; DRESSINGS D/I AND NO INCREASED BLEEDING OR SWELLING. PATIENT CONFUSED EARLIER BUT CLEARER THE PAST FEW HOURS. HOB SLOWLY ELEVATED AND PATIENT'S COLOR MUCH PINKER AND EYES MUCH BRIGHTER; NO FURTHER ISSUES OF PULLING ON CORDS; MANAGING TO CHANGE TV CHANNELS WITHOUT DIFFICULTY. MAHESH. PROTEIN DRINKS BEFORE DINNER; HAD SMALL AMOUNT OF DINNER AND ABLE TO FEED SELF. VSS AND NO ACUTE ISSUES. NIECE IN THIS EVENING TO VISIT AND CHECK ON PATIENT. WILL REPORT TO ONCOMING RN.
[2018-11-26 06:01] LABS: Hematocrit 24.5 % (33.0-51.0); Hemoglobin 7.9 g/dL (11.5-16.0)
--- NOTE | 2018-11-26 06:23 | NUR ---
Shift Summary: Patient slept well throughout shift, easily roused via verbal stimuli. Denies pain, discomfort, SOB, or dyspnea. VSS, O2- 92-96% on 2L/NC. RT groin access site continues to show hematoma but has not increased throughout shift, dressing shows small amount of dried blood drainage (present at start of shift). Rt posterior tibial site remains WNL, very scant amount of serosanguineous drainage throughout shift, no s/s of hematoma, dressing changed this shift, new radha gauze applied. Lt brachial site remains WNL, no s/s of bleeding or hematoma noted. No change noted to BLE, pulses still present via doppler but remain difficult to locate. No change noted to discoloration, temp, sensation (see tir-fold for assumption note). Hgb of 7.9 this morning, received order per Dr. Barnard to transfuse x2 units of PRBC's. Awaiting unit ready slip from blood bank at this time. Will continue to monitor until report to day shift RN.
[2018-11-26 07:04] LABS: Hemoglobin 8.9 g/dL (11.5-16.0)
[2018-11-26 07:05] LABS: Hematocrit 27.1 % (33.0-51.0)
--- NOTE | 2018-11-26 07:30 | NUR ---
ASSUMED CARE OF PATIENT; SEE ASSESSMENT CHARTING FOR DETAILS. PATIENT AWAKE AND WATCHING TV; NO PAIN TO FEET UNLESS TOUCHED; ABLE TO TOERATE BLANKETS. LUNGS CLEAR; DIMINISHED IN BASES; OXYGEN AT 2L/MIN VIA NC. H&H DOWN TODAY; 2 UNITS OF RBC'S TO BE TRANSFUSED. ? IF GI PROBLEMS D/T NEED FOR PROTONIX; DR. CHAWLA IN AND ORDERED IV PROTONIX BID. [place] DRAINING FAIR AMOUNTS OF MED. YELLOW URINE. MONITOR REMAINS NSR TO ATRIAL FIB; RATE VARIABLE. AFEBRILE AND VSS. ORIENTS TO PERSON, PLACE, SELF AND FAMILY AND FOLLOWS DIRECTIONS. R GROINS SITE REMAINS SWOLLEN AND BRUISED BUT HEMATOMA HAS NOT EXTENDED. R MEDIAL ANKLE SITE WITH DRESSING DRY/INTACT NO NEW BLEEDING; NO SWELLING. L HUMERUS DRESSING D/I AND NO BLEEDING OR SWELLING.
[2018-11-26 07:32] LABS: Anion Gap 6 mmol/L (6-16); Blood Urea Nitrogen 13 mg/dL (8-24); Bun/Creatinine Ratio 45.3 (12.0-20.0); CO2, Blood 27 mmol/L (21-32); Calcium, Blood 8.2 mg/dL (8.5-10.1); Chloride, Blood 105 mmol/L (98-108); Creatinine, Blood 0.29 mg/dL (0.40-1.00); Glomerular Filtration Rate >60 (60-); Glucose, Blood 170 mg/dL (70-99); Potassium, Blood 3.1 mmol/L (3.5-5.5); Sodium, Blood 138 mmol/L (136-145)
[2018-11-26 14:38] LABS: Hematocrit 37.9 % (33.0-51.0); Hemoglobin 12.6 g/dL (11.5-16.0)
--- NOTE | 2018-11-26 14:50 | NUR ---
RECEIVED BOTH UNITS RBC'S; COLOR PINKER. MONITOR WITH ATRIAL FIB; RATE 80;S TO 120'S. LOWGRADE TEMP. OF 99.4. WILL TRANSFER CARE TO CARY MCDONALD RN.
--- NOTE | 2018-11-26 17:37 | NUR ---
DR. SHEA / CALL TO DR. CHAWLA: DR. HSEA IN ROOM TO SEE PT, HE STS HE WOULD LIKE TO STOP THE PT's HEPARIN & BEGIN XARELTO INSTEAD OF RESUMING COUMADIN. HE WOULD LIKE THIS IDEA TO BE DISCUSSED W/ DR. CHAWLA PRIOR TO PLACING ANY OFFICIAL ORDERS. CALL TO DR. CHAWLA TO DISCUSS THE ABOVE, DR. CHAWLA STS SHE WOULD LIKE TO HOLD OFF ON STARTING THE PT ON XARELTO & WILL PLACE A COUMADIN CONSULT SO THAT PHARMACY MAY MANAGE THE PT's COUMADIN DOSING UNTIL THERAPEUTIC. HEPARIN IS TO REMAIN INFUSING UNTIL THERAPEUTIC COUMADIN LEVEL HAS BEEN REACHED. SHE IS CONCERNED THAT THE PT MAY NOT BE ABLE TO AFFORD XARELTO ONCE DISCHARGED FROM THE HOSPITAL. SHE STS SHE WILL DISCUSS THIS W/ THE PT DURING ROUNDS TOMORROW & PLACE ORDERS NEEDED. WILL CONTINUE TO MONITOR & UPDATE NEEDED.
[2018-11-26 17:46] LABS: Hematocrit 37.3 % (33.0-51.0); Hemoglobin 12.5 g/dL (11.5-16.0)
--- NOTE | 2018-11-26 18:57 | NUR ---
Initial Visit: Consult received for advance care planning, dementia, vascular concerns. Spoke to pt's nurse, Farzana. She reports that patient's mentation is more clear today. She does believe that the patient has the capability to discuss complex matters of code status and POLST form. Pt is sitting up in bed, tray on overbed table. She appears to be eating a little. Pt is oriented to self, situation, place. Reviewed code status with her, explained a little about the POLST form. She states that she believes that she has one of these. She asks me to come back tomorrow when her neice is here to discuss further and so she can ask her neice about it. Pt reports that she lives independently. She says, "but people are trying to talk me out of it." She continues to tell me that her family wants someone to move in with her. She expresses dismay at having someone live with her. She is interested in having help at home, though. Updated social work associate referal. There seems to be some discussion about coumadin vs Xarelto use for at home. Dr. Seaman has concerns about the patient affording this medication at home.
--- NOTE | 2018-11-26 19:15 | NUR ---
[place] of Care: Patient alert and oriented, sitting upright in bed watching tv. Denies pain/discomfort, SOB, or dyspnea. VSS, O2- 92-97% on 2L/NC. Rt groin access site has hematoma present but size and firmness has decreased r/t last NOC shift, no s/s of active bleeding. Rt posterior tibial and lt brachial access sites remain wnl, no s/s of active bleeding. Bilateral feet remain cool, but color has improved r/t to last NOC shift, appear more pink. Doppler pulses remain present per doppler but difficult to locate. Purple discoloration to distal end of lt great + 2nd toe, also present last NOC shift. Bueno cath patent and intact, draining clear yellow urine. Peripheral IV's x2 to lt arm patent and intact. Heparin gtt infusing at 22u/kg/hr, dose and dose weight confirmed with EMAR and day shift RN. Will continue to monitor for pain, comfort, safety.
--- NOTE | 2018-11-26 19:23 | NUR ---
ASSUMED CARE / SHIFT SUMMARY: REPORT RECEIVED FROM RICO Ulrich RN. ASSUMED CARE OF THIS PT AT APPROX 1450. NO ACUTE CHANGES SINCE ASSUMING CARE. PT A&O, PLEASANT & COOPERATIVE. SHE HAS HAD NO C/O PAIN OR DISCOMFORT THIS AFTERNOON & REQUESTED A CHOCOLATE PROTEIN SHAKE FOR NUTRITION PRIOR TO DINNER. LS ARE CLEAR, DIM T/O. PT REMAINS ON 2L NC WHICH IS HER BASELINE. O2 SATS > 92%. MONITOR SHOWS SR-ST W/ HR 90-110s. PT HAS GOOD APPETITE, [place] PATENT/DRAINING CLEAR YELLOW URINE. ALL PUNCTURE/SHEATH SITE ARE WNL/UNCHANGED. WILL CONTINUE TO MONITOR & REPORT OFF TO ONCOMING RN.
[2018-11-26 22:16] LABS: Hematocrit 34.9 % (33.0-51.0); Hemoglobin 11.8 g/dL (11.5-16.0)
[2018-11-27 05:53] LABS: Anion Gap 7 mmol/L (6-16); Blood Urea Nitrogen 11 mg/dL (8-24); Bun/Creatinine Ratio 40.3 (12.0-20.0); CO2, Blood 27 mmol/L (21-32); Calcium, Blood 7.9 mg/dL (8.5-10.1); Chloride, Blood 106 mmol/L (98-108); Creatinine, Blood 0.27 mg/dL (0.40-1.00); Glomerular Filtration Rate >60 (60-); Glucose, Blood 105 mg/dL (70-99); Potassium, Blood 3.5 mmol/L (3.5-5.5); Sodium, Blood 140 mmol/L (136-145)
--- NOTE | 2018-11-27 06:41 | NUR ---
Shift Summary: Patient slept well throughout shift, easily roused to verbal stimuli. Oriented x4, denies pain, discomfort, SOB, or dyspnea. VSS, O2-94-96% on 2L/NC. Peripheral IV's to rt arm remain patent and intact. Heparin gtt increased from 22u/kg/hr to 23u/kg/hr this shift pharmacy orders. Bueno cath remains patent and intact, draining light yellow clear urine. Peripheral pulsed to BLE remain positive per doppler. No change in appears to bilateral feet/legs. Call light in reach, makes needs known. Will continue to monitor until report to day shift RN.
--- NOTE | 2018-11-27 08:51 | NUR ---
0715-ASSUMED CARE OF PT. PT IS ALERT AND ORIENTED. DENIES PAIN AT THIS TIME. PT THUS STATES THAT SHE HAS SENSITIVITY TO HER LEGS WHEN TOUCHED. PT ON HEPARIN DRIP @ 23 UNITS/KG/HR ORDERED. WILL BE KEEPING THIS DOSE PER PHARMACY UNTIL NEXT PTT. 0745- PT'S NIECE AT BEDSIDE UPDATED HER OF PT'S STATUS. 0830-SEEN BY DR. CHAWLA, UPDATED HER OF PT'S STATUS.
--- NOTE | 2018-11-27 11:05 | NUR ---
DR. CHAWLA WAS NOTIFIED REGARDING PHARMACIST RECOMMENDATION TO USE XARELTO RATHER THAN COUMADIN DUE TO PT TAKING TAMOXIFEN.
[2018-11-27 11:28] LABS: Hematocrit 36.9 % (33.0-51.0); Hemoglobin 12.2 g/dL (11.5-16.0)
--- NOTE | 2018-11-27 15:29 | NUR ---
1430-PHYSICAL THERAPIST AT BEDSIDE WORKING WITH PT. PT WAS ABLE TO SIT ON THE CHAIR PER PT.
[2018-11-27 17:52] LABS: Hematocrit 37.2 % (33.0-51.0); Hemoglobin 12.1 g/dL (11.5-16.0)
--- NOTE | 2018-11-27 18:52 | NUR ---
Reviewed POLST form with Magdalena ch and patient. Interventions reviewed. Pt is certain she does not want intubation, however is unsure about chest compressions and would like to talk about it further with family. Magdalena reports that she will help pt fill it out and have it ready for signature in a couple days. Instructed that form should follow patient and be placed on back of front door or on the fridge for easy access if EMS is called to the home. Magdalena verbalizes understanding. She will give it to ICU nurse for doctor's signature when it is ready.
--- NOTE | 2018-11-27 19:27 | NUR ---
SHIFT SUMMARY: PT IS ALERT AND ORIENTED, HAS SOME HARD OF HEARING. PT WAS MEDICATED FOR PAIN ON HER FEET. PEDAL PULSES CAN BE DOPPLED. STILL WARM TO TOUCH FEET. PURPLISH COLOR TO L BIG TOE & 2 DIGIT OF TOE STILL PRESENT AND STABLE. AFEBRILE. PATIENT WAS ABLE TO GET OUT OF BED AND SAT ON THE CHAIR WITH PHYSICAL THERAPY.
--- NOTE | 2018-11-28 01:02 | NUR ---
START OF SHIFT: PT A+O X4 WATCHING TV AND USES CALL LIGHT APPROPRIATELY. PT LS WITH RHONCHI CLEARED WITH COUGH. SKIN PWD. RIGHT GROIN SITE WITH DRESSING DCI AND BRUISING/HEMATOMA IMPROVING. LEFT BRACHIAL ACCESS SITE WITH DRESSING DCI AND IS WNL. PEDAL PULSES +X2 DETECTED VIA DOPPLER. BILATERAL HEEL DRESSINGS INTACT WITH LOWER EXT ELEVATED ON PILLOWS. PT REQUESTED HEEL PROTECTORS TO BE OFF. PT'S FEET CONTINUES TO BE RED AND SCALY. PT'S TIPS OF LEFT BIG TOE AND NEXT TO DARK LOCKETT NOTED AT VERY TIPS OF TOES. RIGHT BIG TOE DARK LOCKETT AT VERY TIP OF TOE. PT CONTINUES TO C/O PAIN TO TOUCH TO BILATERAL FEET. PT USING BEDPAN AND IS ABLE TO VOID WITHOUT DIFFICULTY. VSS. WILL CONTINUE TO MONITOR.
--- NOTE | 2018-11-28 01:10 | NUR ---
ASSUMED PT CARE FROM LB SCOTT. BEDSIDE REPORT GIVEN PT ALERT AND ORIENTED. ABLE TO MAKE NEEDS KNOWN. PLEASANT AND COOPERATIVE WITH CARE. BILATERAL PEDAL PULSES FOUND BY DOPPLER; BOTH ARE STRONG. LEFT TIBIAL PULSE FOUND VIA DOPPLER AND WAS ALSO STRONG. RIGHT TIBIAL PULSE UNABLE TO ASSESS D/T DRESSING TO RIGHT HEEL. PT IS VERY TENDER TO THE TOUCH TO BILATERAL LEGS. BILATERAL BIG TOES AND SECOND DIGITS ARE A DARK, DISCOLORATION; PHOTOS OBTAINED. CALL LIGHT IS WITHIN REACH. PT APPEARS COMFORTABLE AT THIS TIME.
--- NOTE | 2018-11-28 01:10 | NUR ---
REPORT GIVEN TO RADHA RN. PT'S PEDAL PULSES VERIFIED AND DETECTED VIA DOPPLER. PT AWAKENED EASILY TO RN AT BEDSIDE AND WAS GIVEN WARM BLANKET. CALL LIGHT WITHIN REACH. RADHA RN TO ASSUME CARE OF PT AT THIS TIME.
[2018-11-28 03:36] LABS: BASOPHILS ABSOLUTE AUTO 0.04 K/mm3 (0.00-0.23); BASOPHILS PERCENT AUTO 0 % (0-2); EOSINOPHILS ABSOLUTE AUTO 0.11 K/mm3 (0.00-0.68); EOSINOPHILS PERCENT AUTO 1 % (0-6); Hematocrit 36.3 % (33.0-51.0); Hemoglobin 12.1 g/dL (11.5-16.0); IMMATURE GRAN PERCENT AUTO 1 % (0-1); LYMPHOCYTES ABSOLUTE AUTO 0.84 K/mm3 (0.84-5.20); LYMPHOCYTES PERCENT AUTO 7 % (21-46); MONOCYTES ABSOLUTE AUTO 0.95 K/mm3 (0.16-1.47); MONOCYTES PERCENT AUTO 8 % (4-13); Mean Corpuscular HGB Conc 33.3 g/dL (31.5-36.5); Mean Corpuscular Volume 90 fL (80-100); Mean Platelet Volume 9.6 fL (9.1-12.4); NEUTROPHILS ABSOLUTE AUTO 9.28 K/mm3 (1.96-9.15); NEUTROPHILS PERCENT AUTO 82 % (41-73); Platelet Count 176 K/mm3 (150-400); RDW Coefficient Variation 14.5 % (11.7-14.2); RDW Standard Deviation 47.2 fL (35.1-46.3); Red Blood Cell Count 4.04 M/mm3 (3.80-5.20); White Blood Cell Count 11.32 K/mm3 (4.00-11.30)
[2018-11-28 03:56] LABS: Anion Gap 6 mmol/L (6-16); Blood Urea Nitrogen 8 mg/dL (8-24); Bun/Creatinine Ratio 30.1 (12.0-20.0); CO2, Blood 30 mmol/L (21-32); Calcium, Blood 8.1 mg/dL (8.5-10.1); Chloride, Blood 103 mmol/L (98-108); Creatinine, Blood 0.27 mg/dL (0.40-1.00); Glomerular Filtration Rate >60 (60-); Glucose, Blood 97 mg/dL (70-99); Potassium, Blood 3.5 mmol/L (3.5-5.5); Sodium, Blood 139 mmol/L (136-145)
--- NOTE | 2018-11-28 04:30 | NUR ---
TYLER RN REASSUMED PT CARE; HAND OFF GIVEN
--- NOTE | 2018-11-28 06:02 | NUR ---
PT REPOSITIONED AFTER USING BEDPAN. HEEL PROTECTORS CHANGED. CALL LIGHT WITHIN REACH.
--- NOTE | 2018-11-28 09:40 | NUR ---
ASSUMED CARE: REPORT RECEIVED FROM TYLER Smith RN. ASSUMED CARE OF THIS PT AT APPROX 0700. ON ASSESSMENT, PT IS AWAKE, SITTING UP IN BED. SHE STS CHRONIC PAIN & EXTREME SENSITIVITY TO BILAT FEET, WHICH IS NOT NEW SINCE PROCEDURES. PEDAL PULSES FOUND VIA DOPPLER, UNCHANGED FROM PRIOR SHIFTS. WILL CONTINUE TO MONITOR & UPDATE NEEDED.
[2018-11-28 12:20] LABS: Hematocrit 43.7 % (33.0-51.0); Hemoglobin 14.1 g/dL (11.5-16.0)
--- NOTE | 2018-11-28 16:45 | NUR ---
RECEIVED REPORT FROM CARY ORDER BUILDER, PRIOR TO TRANSFER TO PCU ROOM 12.
--- NOTE | 2018-11-28 17:10 | NUR ---
NURSING TRANSFER NOTE RECEIVED PT FROM ICU 14. ALERT AND ORIENTED X 4. SR ON MONITOR. LUNGS CLEAR, DIMINISHED AT THE BASES, 2L O2 NC, SATS 95%. RIGHT FEMORAL GROIN SITE WITH GUAZE/OPSITE DRESSING IN PLACE, NOTED HEMATOMA UNDERNEATH DRESSING, AND LARGE BRUISING TO THE RIGHT INNER/BACK THIGH. LEFT BRACHIAL SITE WITH GUAZE/OPSITE DRESSING IN PLACE. BILATERAL FEET WITH MEPILEX DRESSINGS TO PROTECT THE HEELS AND WAFFLE HEEL PROTECTORS IN PLACE. PT C/O SHARP PAIN WITH LIGHT TOUCH TO BILATERAL FEET. DOPPLER PULSES ON BOTH SIDES. TOLERATING A REGULAR DIET, GOOD APPETITE. VOIDS PER BEDPAN OR BEDSIDE COMMODE. PT STATES SHE HAS NOT WALKED SINCE HER PROCEDURE AND HAS NOT PLACED PRESSURE ON HER FEET TO STAND. NOTED BRUISING ON TAILBONE WITH NO OPEN AREAS. VINCE BAI, ADVISED THAT THEY HAVE BEEN PUTTING MEPILEX ON PT'S COCCYX BUT REMOVED IT BECAUSE IT KEEPS GETTING SATURATED WITH URINATION AND PT DOESN'T WANT IT ON ANYMORE. INSTRUCTED PT OF IMPORTANCE TO TURN FREQUENT IN BED TO PREVENT SKIN BREAKDOWN ON HER COCCYX. VERBALIZED GOOD UNDERSTANDING.
--- NOTE | 2018-11-28 17:10 | NUR ---
TRANSFER TO PCU: REPORT GIVEN TO LB NATHAN TO ASSUME CARE. PT TAKEN OUT OF UNIT VIA BED BY KENDRA FONTANA, AT APPROX 1700. CHART, MEDS & BELONGINGS HAVE ALL BEEN TAKEN W/ PT. SHE DENIES QUESTIONS REGARDING TRANSFER TO STEPDOWN UNIT.
[2018-11-28 17:52] LABS: Hemoglobin 12.6 g/dL (11.5-16.0)
--- NOTE | 2018-11-28 20:10 | NUR ---
PM NOTE. ASSUMED CARE OF PT APROX 1900, PT IS A&Ox4. PT WAS A RECENT TRANSFER FROM ICU S/P REVASCULARIZATION PROCEDURE OF HER BLES. PT'S BLLE ARE PINK, WARM AND DRY. SKIN IS VERY FLAKY. THE TIPS OF THE PT'S RIGHT AND LEFT GREAT TOES ARE PUPLE, NONBLANCHING. THE 3RD AND 4TH TOES ON THE RIGHT FOOT ALSO HAVE PURPLE TIPS. THE 2ND TOE ON THE LEFT HAS A PURPLE TIP WELL. PT'S HEELS ARE WRAPPING IN PROTECTIVE MEPILEX DRESSINGS, DRESSINGS WERE REMOVED FOR ASSESSMENT, THE PT'S LEFT HEEL IS SOFT AND HAS A PURPLE AREA THE SIZE OF A SILVER DOLLAR. PROTECTIVE DRESSING WAS REPLACED AND PT'S HEELS ARE FLOATED ON HEEL PROTECTORS. DRESSING TO THE PT'S LEFT INNER ANKEL IS INTACT WITH SMALL AMOUNT OF DRY BLOOD. DRESSING IN THE PT'S RIGHT GROIN AND LEFT INNER ARM ARE INTACT. LARGE BRUSING IS NOTED TO THE PT'S RIGHT INNER THIGH AND LEFT INNER ARM. PT C/O SEVERE PAIN IF HER LEGS/FEET ARE TOUCHED, PT STATES CONSTANT "STINGING/BURNING" TO THOSE AREAS REGARDLESS OF TOUCH. TELE INTACT, SR W/PACS AND PVCS IN THE 90'S PER DIESEL ENGINEER. PT'S BP 140/64. PT HAS DEPENTED EDEMA NOTED TO HER UPPER ARMS IN THE AREAS THAT HAD COBAN DRESSINGS FROM LAB DRAWS AND IV STARTS. L/S CLEAR T/O BUT DIM, PT IS CURRENTLY ON 2L NC WHICH IS HER HOME DOSE. BT PRESENT AND HYPOACTIVE, ABD IS SOFT AND NONTENDER TO PALP, PT HAS A FEMMORAL ARTERY BIPASS, THIS AREA IS NOTED TO BE HARD AND TUBE LIKE ABOVE THE PELVIC BONE. CALL LIGHT IN REACH, BED IS LOCKED AND LOW WILL CONTINUE TO MONITOR.
--- NOTE | 2018-11-29 05:27 | NUR ---
SHIFT SUMMARY. NO ACUTE CHANGES NOTED THIS SHIFT. PT DENIES ANY CHEST PAIN/PRESSURE, N/V OR SOB. PT STILL COMPLAINS OF PAIN TO HER LEGS/FEET AND HAS SEVERE PAIN WHEN THEY ARE LIGHTLY TOUCHED. PT HAS BEEN TURNED Q2 HOURS TO PREVENT SKIN BREAKDOWN TO HER COCCYX. PT'S HEELS ARE FLOATED ON PILLOWS AND HEEL PROTECTORS. PT'S VS HAVE BEEN STABLE T/O SHIFT. PT CALLS APPROPRIATELY AND USES BEDPAN TO VOID W/O DIFFICULTY. CALL LIGHT IN REACH, BED IS LOCKED AND LOW WILL CONTINUE TO MONITOR UNTIL REPORT IS GIVEN TO ONCOMING RN.
[2018-11-29 05:28] LABS: Hemoglobin 12.1 g/dL (11.5-16.0)
[2018-11-29 05:59] LABS: Anion Gap 6 mmol/L (6-16); Blood Urea Nitrogen 7 mg/dL (8-24); Bun/Creatinine Ratio 25.1 (12.0-20.0); CO2, Blood 31 mmol/L (21-32); Calcium, Blood 8.5 mg/dL (8.5-10.1); Chloride, Blood 102 mmol/L (98-108); Creatinine, Blood 0.28 mg/dL (0.40-1.00); Glomerular Filtration Rate >60 (60-); Glucose, Blood 91 mg/dL (70-99); Sodium, Blood 139 mmol/L (136-145)
--- NOTE | 2018-11-29 10:47 | NUR ---
AM NOTE PT ALERT AND OREINTED. [place]. SR. TALKED WITH PT AND DR CHAWLA ABOUT BETTER PAIN CONTROL SO PT CAN PARTICIPATE IN PHYSICAL THERAPY. PT HAS BEEN REFUSING TO GET OOB BECAUSE HER FEET HURT TOO MUCH. VSS. FAMILY PLAN IS TO MOVE HER UP TO [place] AND LIVE WITH HER DAUGHTER. CONTINUE POT.
--- NOTE | 2018-11-29 18:10 | NUR ---
successful transfer Pt was placed on bed hall per her request. She was taking a prolonged amount of time. This nurse went to che3ck on her and found her, with feet flat on the bed, trying to disempact herself. Told pt that she was getting up tot he bsc. Set a a bsc. Placed anti skid socks on her feet. Which she didn't like. Then we helped her get oob and stand. Pt did no wince, scream, guard or express pain upon standing. Asked her how painful her feet were. She refused to answer and just glared. Pt sat ont he bsc. Was able to have a bm. She restood without painful exclamation and was able to transfer back to bed with 1 assist and fww. Unsteady. She leans backwards. Bed alarm on. COntinue pot.
--- NOTE | 2018-11-29 20:15 | NUR ---
PM NOTE. ASSUMED CARE OF PT APROX 1900, PT IS A&Ox4. PT IS BEING ENCOURAGED TO GET UP AND USE THE BSC INSTEAD OF THE BEDPAN TO HELP IMPROVE MOBILITY AND PREVENT DECONDITIONING. PT COMPLAINS OF PAIN WHEN HER FEET/LEGS ARE TOUCHED OR WHEN SHE STANDS ON THEM, BUT THIS APPEARES TO BE TOLERABLE TO THE PT. PT HAS HAD IMPROVED PAIN CONTROL DUE TO NEW ORDERS (SEE EMAR) AND IS MORE WILLING TO BE MOBILE NOW. TELE INTACT, ST IN THE 100'S-120'S, BUT PT HAD JUST GOTTEN UP AND USED THE BSC. PT'S BP 131/55. PT HAS DEPENDENT EDEMA TO THE BLUE, THIS HAS IMPROVED SINCE PREVIOUS SHIFT. L/S ARE CLEAR BUT DIM T/O, PT IS CURRENTLY ON 2L NC WITH O2 STATS AT 93%. BT PRESENT AND HYPOACTIVE, ABD IS SOFT AND NONTENDER TO PALP. CALL LIGHT IN REACH, BED IS LOCKED AND LOW WILL CONTINUE TO MONITOR.
--- NOTE | 2018-11-30 05:36 | NUR ---
SHIFT SUMMARY. NO ACUTE CHANGES NOTED THIS SHIFT. PT HAS BEEN UP TO THE BSC TO VOID WITH LITTLE DIFFICULTY. PT'S HEELS HAVE BEEN FLOATED ON PILLOWS TO PREVENT FURTHER PRESSURE DAMAGE. PT HAS REFUSED THE FOAM HEEL PROTECTORS THIS SHIFT. PT HAS BEEN TURNED Q2 TO PREVENT PRESSURE ULCER TO HER COCCYX, PT HAS REFUSED TO ALLOW STAFF TO APPLY A MEPILEX TO HER SACRAL/COCCYX. PT'S VS HAVE BEEN STABLE. PT HAS BEEN MEDICATED FOR PAIN 2 TIMES PER EMAR WITH GOOD RESULTS. CALL LIGHT IN REACH, BED IS LOCKED AND LOW WILL CONTINUE TO MONITOR UNTIL REPORT IS GIVEN TO ONCOMING RN.
[2018-11-30 06:06] LABS: BASOPHILS ABSOLUTE AUTO 0.05 K/mm3 (0.00-0.23); BASOPHILS PERCENT AUTO 0 % (0-2); EOSINOPHILS ABSOLUTE AUTO 0.29 K/mm3 (0.00-0.68); EOSINOPHILS PERCENT AUTO 2 % (0-6); Hematocrit 37.6 % (33.0-51.0); Hemoglobin 11.9 g/dL (11.5-16.0); IMMATURE GRAN ABSOLUTE AUTO 0.17 K/mm3 (0.00-0.10); IMMATURE GRAN PERCENT AUTO 1 % (0-1); LYMPHOCYTES ABSOLUTE AUTO 0.82 K/mm3 (0.84-5.20); LYMPHOCYTES PERCENT AUTO 7 % (21-46); MONOCYTES ABSOLUTE AUTO 1.08 K/mm3 (0.16-1.47); MONOCYTES PERCENT AUTO 9 % (4-13); Mean Corpuscular HGB 29.4 pg (26.0-34.0); Mean Corpuscular HGB Conc 31.6 g/dL (31.5-36.5); Mean Platelet Volume 9.2 fL (9.1-12.4); NEUTROPHILS ABSOLUTE AUTO 9.88 K/mm3 (1.96-9.15); NEUTROPHILS PERCENT AUTO 80 % (41-73); Platelet Count 233 K/mm3 (150-400); RDW Coefficient Variation 14.6 % (11.7-14.2); RDW Standard Deviation 48.9 fL (35.1-46.3); Red Blood Cell Count 4.05 M/mm3 (3.80-5.20); White Blood Cell Count 12.29 K/mm3 (4.00-11.30)
[2018-11-30 06:11] LABS: Mean Corpuscular Volume 93 fL (80-100)
[2018-11-30 06:23] LABS: Anion Gap 5 mmol/L (6-16); Blood Urea Nitrogen 11 mg/dL (8-24); Bun/Creatinine Ratio 31.2 (12.0-20.0); CO2, Blood 31 mmol/L (21-32); Calcium, Blood 8.3 mg/dL (8.5-10.1); Chloride, Blood 100 mmol/L (98-108); Creatinine, Blood 0.35 mg/dL (0.40-1.00); Glomerular Filtration Rate >60 (60-); Glucose, Blood 95 mg/dL (70-99); Potassium, Blood 4.2 mmol/L (3.5-5.5); Sodium, Blood 136 mmol/L (136-145)
--- NOTE | 2018-12-01 05:28 | NUR ---
SHIFT SUMMARY PT MEDICAL NO TELEMETRY STATUS W/ DISCHARGE TO SNF ORDERS, WAITING FOR BED OPENING IN [place]. PT A&O X4. PT WEAK, 1 PERSON ASSIST TO BSC W/ GAIT BELT AND FWW. PT C/O BILAT FOOT PAIN. BILAT LEGS ELEVATED W/ PILLOW W/ HEELS FLOATED. MEPILEX DRESSING TO BILAT HEELS. BRUISING SCATTERED T/O, SKIN DRY AND FLAKY. LUNG SOUNDS DIM T/O, SPO2 > 92% ON 2L NC. PT IN BED W/ CALL LIGHT IN REACH. WILL CONTINUE TO MONITOR AND PROVIDE CARE UNTIL REPORT OFF TO DAY SHIFT RN.
--- NOTE | 2018-12-01 07:45 | NUR ---
INITIAL ASSESSMENT: Pt resting in bed. LS clear. HR reg. BT positive. Pt has very faint radial and extreamly faint pedal pulses. Feet are warm to touch with good skin tone color, except for the tips of her toes, which are purple in color. Heal mepilex on BLE. R heal is Red, tender, cap refil is at 3 sec. L heal with large blister that is intact. In the middle of this blister there appears to be a Purple discoloration. Heals and toes extreamly tender to touch but Pt is able to stand on her feet to transfer to [facility], with assistance. Very weak and unsteady. Pt A/O x 4. [place]. Call light in reach. Denies needs at this time. Will medicate for pain per orders.
--- NOTE | 2018-12-01 18:24 | NUR ---
SHIFT SUMMARY; Pt resting in bed finishing dinner. Has done well this shift. Has been able to get up to BSC with one person SBA with gait belt every time she needs to void. Seems stronger as the day goes on. Pt able to move herself in bed. NO changes to appearance of her feet. Heal Mepalex still intact. Pt does have pain in her BLE that improves slightly with Marion. Feet still very tender to touch. Plan still to discharge to SNF in [place] on Friday. NO other changes. Stable at this time. Will report to night RN.
--- NOTE | 2018-12-01 19:35 | NUR ---
ASSUMED CARE PT SLEEPING COMFORTABLY IN ROOM. PER DAY SHIFT PT HAS BEEN MOVED TO MEDICAL STATUS NO TELE. PT HAS MULTIPLE INSERTION SITES FROM VASCULAR PROCEDURES TO CLEAR GRATS OF OCCLUSION. SITES INSPECTED AN WNL. REDNESS AND BRUISING NOTED TO AREAS, ESPECIALLY GROIN SITE, BUT NO HEMATOMAS NOTED. PT REPORTS BLE ARE PAINFUKL TO TOUCH BUT OK WHEN LEFT ALONE. LEGS ARE ELEVATED ON PILLOWS, W/ HEELS FLOATED OFF BED SURFACE D/T SKIN BREAKDOWN ON BILAT HEELS, MEPILEX IN PLACE. RESP EVEN UNLABORED ON 2L NC. SATS >92%. DENIES CP OR SOB. CALL LIGHT IS IN REACH.
--- NOTE | 2018-12-02 05:43 | NUR ---
SHIFT SUMMARY PT SLEEPING IN ROOM COMFORTABLY. P[T HAS NO ACUTE CHANGES T/O NIGHT. PT CALLED APPROPRIATELY TO USE BSC. DENIED PAIN AND SOB T/O NIGHT. RESP EVEN UNLABORED ON 2L O2 W/ SATS >92%. BLE ELEVATED T/O NIGHT. GRECIA CARE TO PT COCCYX FOR REDDENED AREA. MEPILEX IN PLACE. CALL LIGHT IN REACH.
--- NOTE | 2018-12-02 07:50 | NUR ---
INITIAL ASSESSMENT: Pt resting in bed. LS clear in upper lobes, diminished in bases with some coarseness. HR reg. Bt positive. Pulese very faint but palp. Color in BLE seems to be improving, however toes still purple at tips and blister to L heal present. R heal red, cap refil at 3. Feet very painful to touch. Large bruise to R groin/thigh appears to be improving. Bruises and dependent edema to elbows/BUE also appears to be improving. VSS. Call light in reach. Will treat for pain per orders.
--- NOTE | 2018-12-02 13:50 | NUR ---
UPDATE: Pt has been sitting up in recliner chair since 1119. Pt has tolerated well and is a 1 person assist back to bed. States that she is doing ok. Pt was medicated with norco for C/O pain in her BLE. Appears comfortable though. Pt denies other needs. Call light in reach.
--- NOTE | 2018-12-02 19:11 | NUR ---
shift summary: Pt resting in bed at this time. Was able to sit up in chair for 2 and 1/2 hours today and tolerated well. Pt was also able to work with PT and tolerated well. VSS throughout shift. Pt ate breakfast and lunch well today but has not ate dinner. Pt did have a large milk shake made from ensure, and drank it all. Podietry in to see pt today, see consultation note. Plan still to discharge on Friday to a rehab facility in [place]. NO other changes this shift. Will report to night RN.
--- NOTE | 2018-12-02 20:14 | NUR ---
ASSUMED CARE/REPORT CALLED PT SLEEPING COMFORTABLY IN ROOM AT THIS TIME. PER DAY SHIFT PT HAD NO ACUTE CHANGES IN STATUS. PT WAS SEEN BY WEIGHTS AND MEASURES SEALER TODAY FOR PAINFUL AND DISCOLORED FEET. PER PROVIDER HEELS ARE TO BE COVERED WITH SOFT NON ADHEARANT DRESSING, D/T POSSIBILITY OF ADHESIVE FURTHERING SKIN ISSUES ON HEELS. HEELS CURRENTLY OPEN TO AIR PER PT REQUEST. PT AGREES TO DRESSING BEFORE BED TONIGHT. PT TO BE TRANSFERED TO [facility] THIS EVENING. REPORT CALLED TO [facility] FLO[facility] RN. PT BELIONGINGS WERE GATHERED AND SENT WITH PT. NO BELONGINGS LEFT IN ROOM. CHART AND MEDICATIONS SENT WITH PATIENT WELL. PT TRANSPORTED VIA [facility] BED BY [facility].
--- NOTE | 2018-12-03 05:46 | NUR ---
SHIFT SUMMARY PT TRANSFERRED TO ROOM APPROX 2029. NO C/O PAIN EXCEPT WHEN HER FEET ARE TOUCHED. WRAPPED HER FEELS IN NONADHERENT GAUZE AND KERLEX BUT FELT OFF WHEN SHE HAD SBA TO BSC. 2L O2 NC. TIPS OF L BIG TOE AND 2ND TOE BLACK AND R BIG TOE WITH SOME OF 2ND AND 3RD TOES SOME BLACK ON TIPS. SHE WAS ABLE TO SLEEP T/O NIGHT. CALL LIGHT IN REACH
--- NOTE | 2018-12-03 08:25 | NUR ---
Patient gave permission to participate in care on 12/03/2018.
--- NOTE | 2018-12-04 07:23 | NUR ---
SHIFT SUMMARY PT A/O BUT [place]. NO C/O PAIN EXCEPT WHEN TO USE HER LEGS TO TRANSFER OR WHEN THEY'RE TOUCHED. SBA TO BSC. SHE WAS ABLE TO SLEEP THROUGH THE NIGHT. CALL LIGHT IN REACH
[2018-12-04] MEDS ORDERED: ACET325 PO (12:32)
[2018-12-04] MEDS ORDERED: HYDR1TAB94 PO (12:44)
[2018-12-04] MEDS ORDERED: POTCHL10ER PO (12:46)
[2018-12-04] MEDS ORDERED: XARELTO15 MG PO (12:48)
[2018-12-04] MEDS ORDERED: CVS DISPOSABLE399 ML PR (12:50)
--- NOTE | 2018-12-04 13:52 | NUR ---
PATIENT DISCHARGE: PATIENT DISCHARGED/ XFR TO HOME HEALTH THIS SHIFT. MEDICATION RECONCILIATION COMPLETED; MED LIST FAXED TO [facility]. DISCHARGE EDUCATION COMPLETED WITH PATIENT AND FAMILY. PATIENT TRANSPORTED TO EXIT BY [facility] STAFF WITH WHEELCHAIR AT 1345. PATIENT DEPARTED [facility] VIA PRIVATE AUTO.
== END 2018-12-04 13:44 | DRG 271 ==
LOC: ER 18:32 → PCU 18:33 → ICUW 11-21 06:41 → MEDS 11-21 06:41 → PCU 11-21 06:42 → ICUW 11-23 18:12 → PCU 11-28 17:06 → MEDS 12-02 20:10
PROVIDERS: Emergency Medicine; Family Medicine; Physician Assistant; Radiology Diagnostic Radiology; ADMIT Hospitalist
PROC: 04CK3ZZ Extirpation of Matter from Right Femoral Artery, Percutaneous Approach (ICD-10-PCS; 2018-11-23)
PROC: 047M3ZZ Dilation of Right Popliteal Artery, Percutaneous Approach (ICD-10-PCS; 2018-11-23)
PROC: 047D3ZZ Dilation of Left Common Iliac Artery, Percutaneous Approach (ICD-10-PCS; 2018-11-23)
PROC: 047J3ZZ Dilation of Left External Iliac Artery, Percutaneous Approach (ICD-10-PCS; 2018-11-23)
PROC: 047K3ZZ Dilation of Right Femoral Artery, Percutaneous Approach (ICD-10-PCS; 2018-11-23)
PROC: B41D1ZZ Fluoroscopy of Aorta and Bilateral Lower Extremity Arteries using Low Osmolar Contrast (ICD-10-PCS; 2018-11-23)
PROC: 04CK3ZZ Extirpation of Matter from Right Femoral Artery, Percutaneous Approach (ICD-10-PCS; principal; 2018-11-24)
PROC: 047L3ZZ Dilation of Left Femoral Artery, Percutaneous Approach (ICD-10-PCS; 2018-11-24)
PROC: 047K35Z Dilation of Right Femoral Artery with Two Drug-eluting Intraluminal Devices, Percutaneous Approach (ICD-10-PCS; 2018-11-24)
PROC: B41D1ZZ Fluoroscopy of Aorta and Bilateral Lower Extremity Arteries using Low Osmolar Contrast (ICD-10-PCS; 2018-11-24)
PROC: 3E05317 Introduction of Other Thrombolytic into Peripheral Artery, Percutaneous Approach (ICD-10-PCS; 2018-11-24)
PROC: B41D1ZZ Fluoroscopy of Aorta and Bilateral Lower Extremity Arteries using Low Osmolar Contrast (ICD-10-PCS; 2018-11-25)
DX: T82.868A Thrombosis due to vascular prosthetic devices, implants and grafts, initial encounter (principal); Z68.1 Body mass index [BMI] 19.9 or less, adult; J96.11 Chronic respiratory failure with hypoxia; J96.12 Chronic respiratory failure with hypercapnia; E11.51 Type 2 diabetes mellitus with diabetic peripheral angiopathy without gangrene; E78.5 Hyperlipidemia, unspecified; Z95.828 Presence of other vascular implants and grafts; Z90.11 Acquired absence of right breast and nipple; J44.9 Chronic obstructive pulmonary disease, unspecified; F17.210 Nicotine dependence, cigarettes, uncomplicated; Z99.81 Dependence on supplemental oxygen; Z91.14 Patient's other noncompliance with medication regimen; Z79.82 Long term (current) use of aspirin; Z79.01 Long term (current) use of anticoagulants; R63.6 Underweight; I48.2 Chronic atrial fibrillation; D50.0 Iron deficiency anemia secondary to blood loss (chronic); E87.6 Hypokalemia; E83.51 Hypocalcemia
CPT/HCPCS: 36140; 36415; 36430; 37184; 37186; 37211; 37213; 37220; 37224; 37226; 75625; 75716; 75774; 76937; 80048; 80053; 82310; 83880; 85014; 85018; 85025; 85049; 85384; 85610; 85730; 86850; 86900; 86901; 86920; 93925; 94640; 94760; 96374; 96376; 97110; 97116; 97162; 97530; 99152; 99153; 99285-25; C1725; C1751; C1757; C1769; C1876; C1887; C1894; C9113; G0378; J0610; J1200; J1644; J1720; J2250; J2997; J3010; J7030; J7040; J7050; P9016; Q9967

== ENCOUNTER → 2018-12-16 | Outpatient (CLI) | payer OTHER ==
[~2018-12-16] MED LIST changes: +ACET325 PO; +ALBU3IS INH; +CVS DISPOSABLE399 ML PR; +HYDR1TAB94 PO; +METO50ER PO; +POTCHL10ER PO; +XARELTO15 MG PO; +ZESTRIL40 MG PO
[2018-12-16 14:44] LABS: Anion Gap 9 mmol/L (6-16); Blood Urea Nitrogen 23 mg/dL (8-24); Bun/Creatinine Ratio 47.8 (12.0-20.0); CO2, Blood 28 mmol/L (21-32); Calcium, Blood 9.1 mg/dL (8.5-10.1); Chloride, Blood 102 mmol/L (98-108); Creatinine, Blood 0.48 mg/dL (0.40-1.00); Glomerular Filtration Rate >60 (60-); Glucose, Blood 84 mg/dL (70-99); Potassium, Blood 5.4 mmol/L (3.5-5.5); Sodium, Blood 139 mmol/L (136-145)
== END | disposition home or self-care (01) ==
LOC: LAB 13:58 → LAB SHORT 13:58
PROVIDERS: Hospitalist
DX: E87.6 Hypokalemia (principal)
CPT/HCPCS: 80048